=== PATIENT | female | born 1950 | race Caucasian/White ===

== ENCOUNTER → 2017-06-22 | Outpatient (CLI) | payer OTHER | LOC: FIMAGING 14:24 | PROVIDERS: ATTEND Internal Medicine | DX: Z12.31 Encounter for screening mammogram for malignant neoplasm of breast (principal); Z80.3 Family history of malignant neoplasm of breast | CPT/HCPCS: G0202 ==

== ENCOUNTER → 2018-10-27 | Outpatient (CLI) | payer OTHER, MEDICARE | LOC: FIMAGING 13:25 | PROVIDERS: ATTEND Internal Medicine | DX: Z12.31 Encounter for screening mammogram for malignant neoplasm of breast (principal); Z80.3 Family history of malignant neoplasm of breast ==

== ENCOUNTER 2018-12-29 15:16 | Emergency (ER) | payer OTHER, MEDICARE ==
[2018-12-29] MEDS ORDERED: RIVAROXABAN 15 MG TAB PO ONE (15:39)
--- NOTE | 2018-12-29 15:44 | EDPHY ---
H & P Stated Complaint: Sent by PCP for left leg DVT. Time Seen by Provider: 12/29/18 15:30 HPI/ROS: CHIEF COMPLAINT: Left leg DVT HISTORY OF PRESENT ILLNESS: The patient is a 68-year-old female who was sent from the radiology department to the ER for a positive ultrasound of her left lower extremity showing DVT. She noticed some swelling in her leg over last few days. Mild pain. She has had DVTs in the past as well as a PE several years ago. At that time they attributed to her hormone supplementation with Danielle. She is no longer on hormones. She does not smoke. No recent travel. No chest pain or shortness of breath. No palpitations. Severity: Moderate Modifying factors: None REVIEW OF SYSTEMS: Constitutional: denies: chills, fever, recent illness, recent injury EENTM: denies: blurred vision, double vision, nose congestion Respiratory: denies: cough, shortness of breath Cardiac: denies: chest pain, irregular heart rate, lightheadedness, palpitations Gastrointestinal/Abdominal: denies: abdominal pain, diarrhea, nausea, vomiting, blood streaked stools Genitourinary: denies: dysuria, frequency, hematuria, pain Musculoskeletal: See HPI Skin: denies: lesions, rash, jaundice, bruising Neurological: denies: headache, numbness, paresthesia, tingling, dizziness, weakness Hematologic/Lymphatic: denies: blood clots, easy bleeding, easy bruising Immunologic/allergic: denies: HIV/AIDS, transplant 10 systems reviewed and negative except as noted EXAM: GENERAL: Well-appearing, well-nourished and in no acute distress. HEAD: Atraumatic, normocephalic. EYES: Pupils equal round and reactive to light, extraocular movements intact, sclera anicteric, conjunctiva are normal. ENT: TMs normal, nares patent, oropharynx clear without exudates. Moist mucous membranes. NECK: Normal range of motion, supple without lymphadenopathy or JVD. LUNGS: Breath sounds clear to auscultation bilaterally and equal. No wheezes rales or rhonchi. HEART: Regular rate and rhythm without murmurs, rubs or gallops. ABDOMEN: Soft, nontender, normoactive bowel sounds. No guarding, no rebound. No masses appreciated. BACK: No CVA tenderness, no spinal tenderness, step-offs or deformities EXTREMITIES: Minimal edema left ankle, mild pain with palpation of calf. NEUROLOGICAL: Cranial nerves II through XII grossly intact. Normal speech, normal gait. 5/5 strength, normal movement in all extremities, normal sensation , normal reflexes PSYCH: Normal mood, normal affect. SKIN: Warm, dry, normal turgor, no visible rashes or lesions. Source: Patient Exam Limitations: No limitations - Personal History Current Tetanus Diphtheria and Acellular Pertussis (TDAP): Yes - Medical/Surgical History Hx Asthma: No Hx Chronic Respiratory Disease: No Hx Diabetes: No Hx Cardiac Disease: No Hx Renal Disease: No Hx Cirrhosis: No Hx Alcoholism: No Hx HIV/AIDS: No Hx Splenectomy or Spleen Trauma: No Other PMH: DVT's. - Family History Significant Family History: No pertinent family hx - Social History Smoking Status: Never smoked Alcohol Use: None Constitutional: Initial Vital Signs Temperature (C) 36.6 C 12/29/18 15:17 Heart Rate 100 12/29/18 15:17 Respiratory Rate 16 12/29/18 15:17 Blood Pressure 145/89 H 12/29/18 15:17 O2 Sat (%) 93 12/29/18 15:17 O2 Delivery Mode Room Air Allergies/Adverse Reactions: codeine Allergy (Verified 12/29/18 15:22) Home Medications: Medication Instructions Recorded Losartan Potassium 12/29/18 Rivaroxaban [Xarelto 15mg (*)] 15 mg PO BID #42 tab 12/29/18 Rivaroxaban [Xarelto] 20 mg PO DAILY #10 tab 12/29/18 Medical Decision Making - Diagnostics Imaging Results: Imaging Impressions Extremity Venous Study 12/29/18 14:10 Impression: Acute deep venous thrombosis involving the distal femoral vein, popliteal vein, and paired posterior tibial veins. Findings discussed with Emergency Department physician, Anna Kearney M.D. , on December 29, 2018 at 1504. Imaging: Discussed imaging studies w/ electric detector operator Radiologist ED Course/Re-evaluation: The patient is relieved to find out that we can do novel oral anticoagulants that will not require her to have injections or be hospitalized. Will check her liver and renal function and coagulation 1st. Case management is giving her a coupon for the 1st month of Xarelto. Her primary may continue or switch after that. She was asking if she can go on a road trip starting next week which I consented should be safe. 4:30 p.m. patient's lab work is reassuring. She is happy with the plan and understands indications for returning. Differential Diagnosis: Partial list of the Differential diagnosis considered include but were not limited to; lower extremity DVT, lymphadenopathy, vasculitis and although unlikely based on the history and physical exam, I also considered pulmonary embolism, cellulitis, trauma. I discussed these differential diagnoses and the plan with the patient as well as the usual and expected course. The patient understands that the diagnosis is provisional and that in medicine we are not always correct and that further workup is often warranted. Usual and customary warnings were given. All of the patient's questions were answered. The patient was instructed to return to the emergency department should the symptoms at all worsen or return, otherwise to followup with the physician as we discussed. - Data Points Laboratory Results: Laboratory Results 12/29/18 15:45 12/29/18 15:45 12/29/18 12/29/18 12/29/18 15:45 15:45 15:45 WBC 6.80 10^3/uL 10^3/uL (3.80-9.50) RBC 4.54 10^6/uL 10^6/uL (4.18-5.33) Hgb 15.4 g/dL g/dL (12.6-16.3) Hct 45.7 % % (38.0-47.0) MCV 100.7 fL H fL (81.5-99.8) MCH 33.9 pg pg (27.9-34.1) MCHC 33.7 g/dL g/dL (32.4-36.7) RDW 11.7 % % (11.5-15.2) Plt Count 175 10^3/uL 10^3/uL (150-400) MPV 11.1 fL fL (8.7-11.7) Neut % (Auto) 56.9 % % (39.3-74.2) Lymph % (Auto) 31.0 % % (15.0-45.0) [place] % (Auto) 7.2 % % (4.5-13.0) Eos % (Auto) 3.7 % % (0.6-7.6) Baso % (Auto) 0.9 % % (0.3-1.7) Nucleat RBC Rel Count 0.0 % % (0.0-0.2) Absolute Neuts (auto) 3.87 10^3/uL 10^3/uL (1.70-6.50) Absolute Lymphs (auto) 2.11 10^3/uL 10^3/uL (1.00-3.00) Absolute Monos (auto) 0.49 10^3/uL 10^3/uL (0.30-0.80) Absolute Eos (auto) 0.25 10^3/uL 10^3/uL (0.03-0.40) Absolute Basos (auto) 0.06 10^3/uL 10^3/uL (0.02-0.10) Absolute Nucleated RBC 0.00 10^3/uL 10^3/uL (0-0.01) Immature Gran % 0.3 % % (0.0-1.1) Immature Gran # 0.02 10^3/uL 10^3/uL (0.00-0.10) PT 12.9 SEC SEC (12.0-15.0) INR 1.01 (0.83-1.16) APTT 31.1 SEC SEC (23.0-38.0) Sodium 139 mEq/L mEq/L (135-145) Potassium 4.2 mEq/L mEq/L (3.5-5.2) Chloride 105 mEq/L mEq/L (97-110) Carbon Dioxide 26 mEq/l mEq/l (22-31) Anion Gap 8 mEq/L mEq/L (6-14) BUN 18 mg/dL mg/dL (7-23) Creatinine 1.0 mg/dL mg/dL (0.6-1.0) Estimated GFR 55 Glucose 112 mg/dL H mg/dL (70-100) Calcium 9.7 mg/dL mg/dL (8.5-10.4) Lipase 214 IU/L IU/L (23-300) Medications Given: Discontinued Medications Rivaroxaban (Xarelto) 15 mg PO EDNOW ONE Stop: 12/29/18 15:40 Last Admin: 12/29/18 15:42 Dose: 15 mg Departure - Departure Disposition: Home, Routine, Self-Care Clinical Impression: Deep vein thrombosis (DVT) of left lower extremity Qualifiers: Affected thrombotic vein of extremity: popliteal Chronicity: acute Qualified Code(s): I82.432 - Acute embolism and thrombosis of left popliteal vein Condition: Fair Instructions: Deep Vein Thrombosis (ED) Referrals: Mehnaz Peace MD [Primary Care Provider] - As per Instructions Prescriptions: Rivaroxaban [Xarelto 15mg (*)] 15 mg PO BID #42 tab Rivaroxaban [Xarelto] 20 mg PO DAILY #10 tab
[2018-12-29 16:00] LABS: PLATELET COUNT 175 10^3/uL (150-400)
[2018-12-29 16:14] LABS: INR 1.01 (0.83-1.16); PROTIME(PATIENT) 12.9 SEC (12.0-15.0)
[2018-12-29 16:39] VITALS: BP 147/90
== END 2018-12-29 16:39 | disposition home or self-care (01) ==
LOC: EDSTATUS 15:16
DX: I82.412 Acute embolism and thrombosis of left femoral vein (principal); Z86.718 Personal history of other venous thrombosis and embolism; Z86.711 Personal history of pulmonary embolism